=== PATIENT | female | born 1995 | race Caucasian/White ===

== ENCOUNTER 2017-03-27 10:52 | Emergency (ER) | END 2017-03-27 12:38 | disposition left against medical advice (07) | LOC: UCCORT 10:52 | DX: J02.9 Acute pharyngitis, unspecified (principal); Z53.21 Procedure and treatment not carried out due to patient leaving prior to being seen by health care provider ==

== ENCOUNTER 2018-01-23 16:12 | Emergency (ER) | payer BC ==
[2018-01-23 16:51] VITALS: BP 117/63
[2018-01-23] MEDS ORDERED: Lidocaine 2% VISCOUS* 15 ML UDC PO ONE (17:27)
[2018-01-23] MEDS ORDERED: diPHENhydraMINE LIQ* 12.5 MG/5 ML UDC PO ONE (17:27)
[2018-01-23] MEDS ORDERED: Acetaminophen TAB* 325 MG PO ONE (17:27)
[2018-01-23] MEDS ORDERED: Al Hydrox/Mg Hydrox/Simet LIQ* 30 ML UDC PO ONE (17:27)
--- NOTE | 2018-01-23 17:30 | UC ---
General HPI - HPI Summary HPI Summary: Pt presents for evaluation of her dark urine. she was seen 2 days ago in . she was diagnosed with dehydration and a viral illness. She was given 2 L NS. she states that she is feeling better but is still having burning to her eyes, her stomach is hurting, and she states her urine is still dark. She denies feeling light headed or dizzy. of important note, she did state that her fevers have resolved and she is feeling better. her concern is that her urine is still dark despite drinking plenty of fluids. - History of Current Complaint Chief Complaint: UCGU Stated Complaint: URINARY COMPLAINT Time Seen by Provider: 01/23/18 16:41 Hx Obtained From: Patient Hx Last Menstrual Period: 12/23 Timing: Constant Onset Severity: Mild Current Severity: Mild Pain Intensity: 3 - Allergy/Home Medications Allergies/Adverse Reactions: Allergies Allergy/AdvReac Type Severity Reaction Status Date / Time Penicillins Allergy Hives Verified 01/23/18 16:41 Home Medications: Home Medications Acetaminophen [Acetaminophen Extra Strength] 1,000 mg PO Q6HR PRN 01/23/18 [ History Confirmed 01/23/18] Ibuprofen TAB* [Advil TAB*] 200 mg PO Q6H PRN 01/23/18 [History Confirmed ] PMH/Surg Hx/FS Hx/Imm Hx Previously Healthy: No - recent diagnosis of dehydration and viral illness - Surgical History Surgical History: None Surgery Procedure, Year, and Place: dehydration - Family History Known Family History: Negative: Respiratory Disease, Seizure Disorder - Social History Alcohol Use: Occasionally Substance Use Type: None Smoking Status (MU): Never Smoked Tobacco Review of Systems All Other Systems Reviewed And Are Negative: No Constitutional: Positive: Fatigue. Negative: Fever, Chills Skin: Negative: Rash Eyes: Positive: Other - vague pain behind pt's eyes. ENT: Positive: Negative Respiratory: Positive: Negative Cardiovascular: Positive: Negative Gastrointestinal: Positive: Negative Genitourinary: Positive: Other - dark urine Motor: Positive: Negative Neurovascular: Positive: Negative Musculoskeletal: Positive: Negative Neurological: Positive: Negative Psychological: Positive: Negative Is Patient Immunocompromised?: No Physical Exam Triage Information Reviewed: Yes Appearance: Well-Appearing, No Pain Distress, Well-Nourished Vital Signs: Initial Vital Signs Temp 98.8 F 01/23/18 16:44 Pulse 89 01/23/18 16:44 Resp 16 01/23/18 16:44 BP 117/63 01/23/18 16:44 Pulse Ox 100 01/23/18 16:44 Vital Signs Reviewed: Yes Eye Exam: Normal ENT Exam: Normal ENT: Positive: Other - dry lips Dental Exam: Normal Neck exam: Normal Respiratory Exam: Normal Cardiovascular: Positive: RRR, No Murmur, Pulses Normal Abdomen Description: Positive: Soft, Other: - minimal tenderness to epigastric area Musculoskeletal Exam: Normal Neurological Exam: Normal Psychological Exam: Normal Skin Exam: Normal Course/Dx - Course Course Of Treatment: pt looks non-toxic. she is not clnically orthostatic. her urine shows trace ketones. she has been taking motrin every 6 hours. I discussed with her the fact that she may have developed a gastritis. I encouraged her to simply take tylenol without the motrin. regarding her dehydration, it is mild. she does not require ivf. she looks significantly better today than when I took care of her 2 days ago. I encouraged her to continue hydration. Will give tylenol and a GI cocktail. pt encouraged to f/u with pcp. - Diagnoses Provider Diagnosis: Dehydration Discharge - Sign-Out/Discharge Documenting (check all that apply): Patient Departure All imaging exams completed and their final reports reviewed: No Studies - Discharge Plan Condition: Stable Disposition: HOME Patient Education Materials: Viral Syndrome (ED), Dehydration (ED) Referrals: No Primary Care Phys,NOPCP [Primary Care Provider] - [facility] [Provider Group] Additional Instructions: return if worse or any new symptoms. continue to drink plenty of fluids. stop taking motrin. take tylenol for fever and body aches. it is important to followup with your primary care physician. if you do not have one, I have given you a referral to a pcp group in the area. - Billing Disposition and Condition Condition: STABLE Disposition: Home
== END 2018-01-23 18:05 | disposition home or self-care (01) ==
LOC: UCCORT 16:12
DX: E86.0 Dehydration (principal); Z88.0 Allergy status to penicillin
CPT/HCPCS: 81003; 99212; A9270-GY; G0463

== ENCOUNTER 2018-06-19 14:51 | Emergency (ER) | payer BC ==
[2018-06-19 16:11] VITALS: BP 132/70
--- NOTE | 2018-06-19 16:29 | UC ---
FLU HPI - HPI Summary HPI Summary: Pt c/o fever chills, nasal congestion , sinus pressure, cough, "loss of voice" ST, body aches X 4 days. - History of Current Complaint Chief Complaint: UCGeneralIllness Stated Complaint: COUGH,CHEST CONGESTION,SORE THROAT Time Seen by Provider: 06/19/18 16:10 Hx Obtained From: Patient Hx Last Menstrual Period: 05/22/18 ?: No Onset/Duration: Sudden Onset, Lasting Days, Still Present Severity Currently: Mild Severity Initially: Moderate Pain Intensity: 6 Associated Signs & Symptoms: Positive: Fever, Myalgia, Cough, Sore Throat, Nasal Congestion Related Hx: Possible Flu/Infectious Exposure - Risk Factors Influenza Risk Factors: Negative - Allergy/Home Medications Allergies/Adverse Reactions: Allergies Allergy/AdvReac Type Severity Reaction Status Date / Time moxifloxacin [From Avelox] Allergy Rash Verified 06/19/18 16:15 Penicillins Allergy Hives Verified 01/23/18 16:41 PMH/Surg Hx/FS Hx/Imm Hx Previously Healthy: Yes - Surgical History Surgical History: None Surgery Procedure, Year, and Place: dehydration - Family History Known Family History: Negative: Respiratory Disease, Seizure Disorder - Social History Occupation: Student Lives: Dormitory/Roommates Alcohol Use: Occasionally Substance Use Type: None Smoking Status (MU): Never Smoked Tobacco Have You Smoked in the Last Year: No - Immunization History Vaccination Up to Date: Yes Review of Systems All Other Systems Reviewed And Are Negative: Yes Constitutional: Positive: Fever, Chills, Fatigue Skin: Positive: Negative Eyes: Positive: Negative ENT: Positive: Sore Throat, Sinus Congestion, Sinus Pain/Tenderness Respiratory: Positive: Cough Cardiovascular: Positive: Negative Gastrointestinal: Positive: Negative Genitourinary: Positive: Negative Motor: Positive: Negative Neurovascular: Positive: Negative Musculoskeletal: Positive: Myalgia Neurological: Positive: Negative Psychological: Positive: Negative Is Patient Immunocompromised?: No Physical Exam Triage Information Reviewed: Yes Appearance: Ill-Appearing Vital Signs: Initial Vital Signs Temp 99.7 F 06/19/18 16:06 Pulse 98 06/19/18 16:06 Resp 16 06/19/18 16:06 BP 132/70 06/19/18 16:06 Pulse Ox 100 06/19/18 16:06 Vital Signs Reviewed: Yes Eye Exam: Normal ENT: Positive: Nasal congestion, Sinus tenderness Dental Exam: Normal Neck exam: Normal Respiratory Exam: Normal Cardiovascular Exam: Normal Musculoskeletal Exam: Normal Neurological Exam: Normal Psychological Exam: Normal Skin Exam: Normal Flu Course/Dx - Differential Dx/Diagnosis Differential Diagnosis/HQI/PQRI: Influenza, Upper Respiratory Infection Provider Diagnosis: Sinusitis Discharge - Sign-Out/Discharge Documenting (check all that apply): Patient Departure All imaging exams completed and their final reports reviewed: No Studies - Discharge Plan Condition: Stable Disposition: HOME Prescriptions: Azithromycin TAB* [Zithromax TAB (Z-PABLO) 250 mg #6 tabs] 2 tab PO .TODAY, THEN 1 DAILY #1 pablo Patient Education Materials: Sinusitis (ED) Referrals: No Primary Care Phys,NOPCP [Primary Care Provider] - If Needed - Billing Disposition and Condition Condition: STABLE Disposition: Home
[2018-06-19 16:43] LABS: Influenza A Molecular NEGATIVE (Negative); Influenza B Molecular NEGATIVE (Negative)
== END 2018-06-19 17:00 | disposition home or self-care (01) ==
LOC: UCCORT 14:51
DX: J32.9 Chronic sinusitis, unspecified (principal); Z88.1 Allergy status to other antibiotic agents; Z88.0 Allergy status to penicillin
CPT/HCPCS: 99212; G0463

== ENCOUNTER 2019-04-12 09:26 | Emergency (ER) | payer BC ==
[2019-04-12 10:08] VITALS: BP 102/74
[2019-04-12 10:41] LABS: Influenza A Molecular Negative (Negative); Influenza B Molecular Negative (Negative)
--- NOTE | 2019-04-12 10:47 | UC ---
FLU HPI - HPI Summary HPI Summary: Pt presents with c/o nasal congestion, cough, sinus pressure, pain, generalized malaise, X 1 week. 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 - History of Current Complaint Chief Complaint: UCGeneralIllness Stated Complaint: SORE THROAT COUGH Time Seen by Provider: 04/12/19 10:16 Hx Obtained From: Patient Hx Last Menstrual Period: 05/22/18 ?: No Onset/Duration: Gradual Onset, Lasting Days, Worse Since - osnet Severity Currently: Mild Severity Initially: Moderate Pain Intensity: 4 Associated Signs & Symptoms: Positive: Fever, Myalgia, Cough, Nasal Congestion Related Hx: Possible Flu/Infectious Exposure - Risk Factors Influenza Risk Factors: Negative - Allergy/Home Medications Allergies/Adverse Reactions: Allergies Allergy/AdvReac Type Severity Reaction Status Date / Time moxifloxacin [From Avelox] Allergy Rash Verified 04/12/19 10:08 Penicillins Allergy Hives Verified 04/12/19 10:08 Home Medications: Home Medications Control PO DAILY 04/12/19 [History] Multivitamin [Multivitamins] 1 cap PO DAILY 04/12/19 [History Confirmed 04/12/19 ] PMH/Surg Hx/FS Hx/Imm Hx Previously Healthy: Yes - Surgical History Surgical History: None Surgery Procedure, Year, and Place: dehydration - Family History Known Family History: Positive: Cardiac Disease Negative: Respiratory Disease, Seizure Disorder - Social History Occupation: Employed Full-time Lives: With Family Alcohol Use: Weekly Substance Use Type: None Smoking Status (MU): Never Smoked Tobacco Have You Smoked in the Last Year: No - Immunization History Vaccination Up to Date: Yes Review of Systems All Other Systems Reviewed And Are Negative: Yes Constitutional: Positive: Fever, Chills, Fatigue Skin: Positive: Negative Eyes: Positive: Negative ENT: Positive: Nasal Discharge, Sinus Congestion, Sinus Pain/Tenderness Respiratory: Positive: Cough Cardiovascular: Positive: Negative Gastrointestinal: Positive: Negative Genitourinary: Positive: Negative Motor: Positive: Negative Neurovascular: Positive: Negative Musculoskeletal: Positive: Myalgia Neurological/Mental Status: Positive: Headache Psychological: Positive: Negative Is Patient Immunocompromised?: No Physical Exam Triage Information Reviewed: Yes Appearance: Ill-Appearing Vital Signs: Initial Vital Signs Temp 98.9 F 04/12/19 10:03 Pulse 83 04/12/19 10:03 Resp 18 04/12/19 10:03 BP 102/74 04/12/19 10:03 Pulse Ox 100 04/12/19 10:03 Vital Signs Reviewed: Yes Eye Exam: Normal ENT: Positive: Nasal congestion, Sinus tenderness Dental Exam: Normal Neck exam: Normal Respiratory Exam: Normal Cardiovascular Exam: Normal Musculoskeletal Exam: Normal Neurological Exam: Normal Psychological Exam: Normal Skin Exam: Normal Flu Course/Dx - Differential Dx/Diagnosis Differential Diagnosis/HQI/PQRI: Influenza, Upper Respiratory Infection Provider Diagnosis: Sinusitis Discharge ED - Sign-Out/Discharge Documenting (check all that apply): Patient Departure All imaging exams completed and their final reports reviewed: No Studies - Discharge Plan Condition: Stable Disposition: HOME Prescriptions: Azithromycin TAB* [Zithromax TAB (Z-PABLO) 250 mg #6 tabs] 2 tab PO .TODAY, THEN 1 DAILY #1 pablo Guaifenesin/Pseudo 600/60(NF) [Mucinex D 600/60 (NF)] 1 tab PO Q12H #14 tab Patient Education Materials: Sinusitis (ED) Referrals: [facility] [Outside] - If Needed No Primary Care Phys,NOPCP [Primary Care Provider] - - Billing Disposition and Condition Condition: STABLE Disposition: Home
== END 2019-04-12 10:56 | disposition home or self-care (01) ==
LOC: UCCORT 09:26
DX: J32.9 Chronic sinusitis, unspecified (principal); R05 Cough; R53.83 Other fatigue; M79.10 Myalgia, unspecified site; Z88.0 Allergy status to penicillin; Z88.1 Allergy status to other antibiotic agents
CPT/HCPCS: 99212; G0463